=== PATIENT | male | born 1960 | race African-American/Black ===

== ENCOUNTER 2023-03-19 16:55 | Emergency (ER) | payer SELFPAY ==
[~2023-03-19] VITALS: Ht 185.4 cm; Wt 96.1 kg
[2023-03-19] MEDS ORDERED: TETANUS-DIPTH-ACEL PERTUSSIS 0.5ML SYR Tdap IM ONE (21:30)
[2023-03-19] MEDS ORDERED: ceFAZolin 1GM/50ML 50 ML IV ONE ×2 (21:30)
[2023-03-19] MEDS ORDERED: CEPH500C PO (21:36)
[2023-03-19] MEDS ORDERED: CLIN300C70 PO (21:36)
[2023-03-19] MEDS ORDERED: BACITRACIN TOP OINT 1 UD PKG TOP ONE ×2 (23:30)
[2023-03-19] MEDS ORDERED: ACE3T PO (23:35)
[2023-03-19] MEDS ORDERED: BACIOIN15 TOP (23:35)
[2023-03-20] MEDS ORDERED: ONDANSETRON ODT 4 MG TAB PO ONE (00:30)
[2023-03-20] MEDS ORDERED: HYDROcodone-ACET 10/325MG TAB PO ONE (00:30)
[2023-03-20 03:09] VITALS: BP 119/78
== END 2023-03-20 03:09 | disposition home or self-care (01) ==
LOC: ER 16:55
DX: S62.644A Nondisplaced fracture of proximal phalanx of right ring finger, initial encounter for closed fracture (principal); S62.646A Nondisplaced fracture of proximal phalanx of right little finger, initial encounter for closed fracture; F12.90 Cannabis use, unspecified, uncomplicated; F17.210 Nicotine dependence, cigarettes, uncomplicated; Z79.899 Other long term (current) drug therapy; W27.0XXA Contact with workbench tool, initial encounter; Y93.89 Activity, other specified; Y92.89 Other specified places as the place of occurrence of the external cause; Y99.8 Other external cause status
CPT/HCPCS: 12004; 29130; 73130; 90715; 96365; 96366; 96372; 99284; J0690; Q0162; 96368